=== PATIENT | female | born 1930 ===

== ENCOUNTER 2016-09-18 17:28 | Observation (INO) | payer MEDICARE, MEDICAID ==
[~2016-09-18 17:28] MED LIST: ACID CONTROL150 M2 PO; AMILORIDE HCL5 M1 PO; ASPIRIN81 M1 PO; ATORVASTATIN CA20 M1 PO; CIPRO250 M2 PO; DELTASONE20 MG PO; DILT-XR240 M1 PO; DILTIAZEM 24HR120 M3 PO; FISH OIL 1,0001 EAC8 PO; GLUCOPHAGE500 M3 PO; HYDROCHLOROTHIA25 M1 PO; INCRUSE ELLI62.5 MCG INH; ISOSORBIDE MONO60 M3 PO; MOBIC15 M2 PO; NITROSTAT0.4 MG/TAB SL; OMEPRAZOLE20 M3 PO; PLAVIX75 M1 PO; SYNTHROID75 MC1 PO; TOPROL XL100 M1 PO; TOPROL XL200 M1 PO; VENTOLIN HFA18 G2 INH
[2016-09-18] MEDS ORDERED: AMILORIDE HCL5 M1 PO (17:54)
[2016-09-18] MEDS ORDERED: MOBIC7.5 M2 PO (17:56)
[2016-09-18] MEDS ORDERED: CARDIZEM CD240 M1 PO (17:56)
[2016-09-18] MEDS ORDERED: CLOPIDOGREL75 M1 PO (17:56)
[2016-09-18] MEDS ORDERED: SYNTHROID75 MC1 PO (17:57)
[2016-09-18] MEDS ORDERED: LIPITOR40 M1 PO (17:57)
[2016-09-18] MEDS ORDERED: GLUCOPHAGE500 M3 PO (17:57)
[2016-09-18] MEDS ORDERED: PREDNISONE10 M1 (17:58)
[2016-09-18] MEDS ORDERED: ASPIRIN325 M3 PO (17:58)
[2016-09-18] MEDS ORDERED: ULTRAM50 M1 PO (17:59)
[2016-09-18] MEDS ORDERED: OMEPRAZOLE40 M2 PO (17:59)
[2016-09-18] MEDS ORDERED: TYLENOL EXTRA500 M1 PO (18:00)
[2016-09-18] MEDS ORDERED: ISOSORBIDE MONO60 M3 PO (18:00)
[2016-09-18] MEDS ORDERED: TOPROL XL200 M1 PO (18:01)
[2016-09-18] MEDS ORDERED: BENADRYL25 M3 PO (18:02)
[2016-09-18] MEDS ORDERED: FISH OIL 11000 MG/CA PO (18:02)
[2016-09-18] MEDS ORDERED: RANITIDINE HCL150 M3 PO (18:03)
[2016-09-18] MEDS ORDERED: INCRUSE ELLI62.5 MCG INH (18:04)
[2016-09-18] MEDS ORDERED: VENTOLIN HFA18 G2 PO (18:07)
[2016-09-18 19:45] LABS: ANION GAP 16 mmol/L (0-20); BLOOD UREA NITROGEN 50 mg/dl (6-24); CALCIUM 9.1 mg/dl (8.5-10.5); CARBON DIOXIDE-VENOUS 23 mmol/L (22-32); CHLORIDE 98 mmol/l (96-110); CREATININE 1.41 mg/dl (0.50-1.10); GLUCOSE 183 mg/dL (70-110); POTASSIUM 5.5 mmol/L (3.7-5.1); SODIUM 131 mmol/L (135-145); eGFR VALUE FOR BLACK 40 mL/Min
[2016-09-19 06:12] LABS: BASO % 0.1 % (0-2); EOS % 0.1 % (0-7); HCT-HEMATOCRIT 34.9 % (34.0-49.0); HGB-HEMOGLOBIN 11.6 gm/dl (12.0-15.5); IMMATURE GRANULOCYTES ABSOLUTE 0.11 tho/cmm (0-0.03); LYMPH % 7.9 % (20-45); LYMPH ABSOLUTE COUNT 0.9 tho/cmm (0.8-4.5); MCH (MEAN CORPUSCULAR HGB) 27.8 pg (28.0-32.0); MCHC MEAN CORPUSCULAR HGB CONC 33.2 % (32.0-36.0); MCV (MEAN CELL VOLUME) 83.5 fl (82.0-96.0); MEAN PLATELET VOLUME 9.9 cmc (9.4-12.4); MONO % 3.4 % (0-12); MONOCYTE ABSOLUTE COUNT 0.4 tho/cmm (0.0-1.2); NEUTROPHIL ABSOLUTE COUNT 9.6 tho/cmm (1.6-8.0); NEUTROPHIL-AUTOMATED 9.6 tho/cmm (1.6-8.0); NEUTROPHILS % 87.5 % (40-80); PLATELET COUNT 229 tho/cmm (150-450); RED BLOOD COUNT 4.18 mil/cmm (4.00-5.20); RED CELL DISTRIBUTION WIDTH 14.7 % (12.4-16.4); WHITE BLOOD COUNT 10.9 tho/cmm (4.0-10.0)
[2016-09-19 08:35] LABS: ANION GAP 18 mmol/L (0-20); BLOOD UREA NITROGEN 45 mg/dl (6-24); CALCIUM 8.4 mg/dl (8.5-10.5); CARBON DIOXIDE-VENOUS 21 mmol/L (22-32); CHLORIDE 103 mmol/l (96-110); CREATININE 1.15 mg/dl (0.50-1.10); GLUCOSE 207 mg/dL (70-110); POTASSIUM 5.7 mmol/L (3.7-5.1); SODIUM 136 mmol/L (135-145); eGFR VALUE FOR BLACK 51 mL/Min
[2016-09-20] MEDS ORDERED: CLOTRIMAZOLE10 M1 MM (13:42)
[2016-09-20] MEDS ORDERED: PROTONIX40 M2 PO (13:43)
== END 2016-09-20 15:40 ==
LOC: ORE 17:28 → CAR1 17:37
PROVIDERS: Hospitalist; ADMIT Internal Medicine
PROC: 0DB68ZX Excision of Stomach, Via Natural or Artificial Opening Endoscopic, Diagnostic (ICD-10-PCS; principal; 2016-09-19)
PROC: 0D758ZZ Dilation of Esophagus, Via Natural or Artificial Opening Endoscopic (ICD-10-PCS; 2016-09-19)
DX: R13.10 Dysphagia, unspecified (principal); K29.50 Unspecified chronic gastritis without bleeding; K25.9 Gastric ulcer, unspecified as acute or chronic, without hemorrhage or perforation; K44.9 Diaphragmatic hernia without obstruction or gangrene; B37.0 Candidal stomatitis; M35.3 Polymyalgia rheumatica; I25.10 Atherosclerotic heart disease of native coronary artery without angina pectoris; I25.2 Old myocardial infarction; E78.5 Hyperlipidemia, unspecified; J44.9 Chronic obstructive pulmonary disease, unspecified; E03.9 Hypothyroidism, unspecified; K21.9 Gastro-esophageal reflux disease without esophagitis; E11.9 Type 2 diabetes mellitus without complications; I10 Essential (primary) hypertension; E87.6 Hypokalemia; I35.1 Nonrheumatic aortic (valve) insufficiency; Z79.02 Long term (current) use of antithrombotics/antiplatelets; Z79.1 Long term (current) use of non-steroidal anti-inflammatories (NSAID); Z79.52 Long term (current) use of systemic steroids; Z79.82 Long term (current) use of aspirin; Z79.84 Long term (current) use of oral hypoglycemic drugs; Z79.899 Other long term (current) drug therapy; Z88.2 Allergy status to sulfonamides; Z90.49 Acquired absence of other specified parts of digestive tract; Z90.710 Acquired absence of both cervix and uterus; Z90.89 Acquired absence of other organs; Z98.41 Cataract extraction status, right eye; Z98.42 Cataract extraction status, left eye; Z98.890 Other specified postprocedural states
CPT/HCPCS: C1769; G0378; G0500; J2250; J3010; J7030; J7512